=== PATIENT | male | born 1935 | race Caucasian/White ===

== ENCOUNTER 2016-02-19 14:20 | Observation (INO) | payer MEDICARE ==
[2016-02-19] MEDS ORDERED: Sodium Chloride 0.9% 500 ML 500 ML IV SCH (15:45)
--- NOTE | 2016-02-19 18:51 | PCM.HP ---
History of Present Illness - Chief Complaint Chief Complaint: anemia Date: 02/19/16 History of Present Illness: is a 81 year old male. with myelodysplastic syndrome who has anemia followed by Dr. Smith. He had scheduled recheck next week but was feeling very weak and short of breath so had his home nurse draw early and the hgb was 6.1. He was symptomatic with weakness and shortness of breath. He was too weak to wait for infusion center tomorrow and was thus admitted for observation and transfusion of 2 Units tonight. He has no other new complaints. - Review of Systems Constitutional: Fatigue, Weakness, No Fever, No Chills Eyes: No Symptoms Ears, Nose, & Throat: No Symptoms Respiratory: Short Of Breath, No Cough Cardiac: Chest Pain (chronic old incisional pain), No Edema, No Syncope Abdominal/Gastrointestinal: No Abdominal Pain, No Nausea, No Vomiting, No Diarrhea Genitourinary Symptoms: No Dysuria Musculoskeletal: No Back Pain, No Neck Pain Skin: No Rash Neurological: Dizziness, Lethargy, No Focal Weakness, No Sensory Changes Psychological: No Symptoms Endocrine: No Symptoms Hematologic/Lymphatic: No Symptoms Immunological/Allergic: No Symptoms Medications & Allergies Home Medications: Home Medication List Albuterol/Ipratropium 3ml Neb* [DUONEB 0.5-3 MG/3 ml Neb] 1 dose IH QID [History Confirmed 02/19/16] Ferrous Sulfate [Iron] 325 mg PO TID 02/19/16 [History Confirmed 02/19/16] Fluticasone Propionate [Flonase Nasal] 1 spray IN BID 02/19/16 [History Confirmed 02/19/16] Folic Acid 1 mg PO DAILY 02/19/16 [History Confirmed 02/19/16] Ipratropium/Albuterol Sulfate [Combivent Respimat Common Canister] 1 puff IH QID 02/19/16 [History Confirmed 02/19/16] Levothyroxine Sodium 25 Mcg [Synthroid 25 Mcg] 25 mcg PO DAILY 02/19/16 [ History Confirmed 02/19/16] Metoprolol Succinate 25 mg PO BID 02/19/16 [History Confirmed 02/19/16] Omeprazole 20 MG [Prilosec 20 mg] 1 tab PO DAILY 02/19/16 [History Confirmed ] Potassium Chloride 20 Meq [Klor-Con 20 MEQ] 2 tab PO DAILY 02/19/16 [History Confirmed 02/19/16] Spironolactone 25 mg [Aldactone 25 MG] 25 mg PO DAILY 02/19/16 [History Confirmed 02/19/16] Allergies/Adverse Reactions: Allergies Allergy/AdvReac Type Severity Reaction Status Date / Time No Known Drug Allergies Allergy Unverified 01/22/16 10:29 - Past Medical History Past Medical History: Yes Neurological History: No Pertinent History ENT History: Cataracts Cardiac History: Congestive Heart Failure, Coronary Artery Disease, High Cholesterol, Hypertension, Myocardial Infarction ([place]) Respiratory History: COPD, Pneumonia Endocrine Medical History: No Pertinent History Musculoskelatal History: No Pertinent History GI Medical History: No Pertinent History History: No Pertinent History Pyscho-Social History: No Pertinent History Male Reproductive Disorders: No Pertinent History Comment: NERVE PAIN IN RIGHT HAND, GETS STERIODS INJECTED - Past Surgical History Past Surgical History: Yes Neuro Surgical History: No Pertinent History Cardiac History: No Pertinent History Respiratory Surgery: No Pertinent History GI Surgical History: No Pertinent History Genitourinary Surgical Hx: No Pertinent History Musculskeletal Surgical Hx: No Pertinent History Male Surgical History: No Pertinent History Other Surgical History: pt unsure may not have appendix - Social History Smoking Status: Former smoker How long have you smoked: 37 years Exposure to second hand smoke: No Alcohol: None Drug Use: none - Physical Exam Vital Signs: Vital Signs - 24 hr Temp Pulse Resp BP BP Pulse Ox 02/19/16 14:37 97.6 F 87 20 128/62 100 02/19/16 14:36 97.6 F 87 20 128/62 100 General Appearance: no apparent distress, alert Neurologic Exam: alert, oriented x 3, cooperative, normal mood/affect, nml cerebellar function, nml station & gait, sensation nml, No motor deficits Eye Exam: PERRL/EOMI, eyes nml inspection, pale conjunctivae Ears, Nose, Throat Exam: pharynx normal, moist mucous membranes Neck Exam: normal inspection, non-tender, supple, full range of motion Respiratory Exam: normal breath sounds, lungs clear, No respiratory distress Cardiovascular Exam: regular rate/rhythm, normal heart sounds, normal peripheral pulses, murmur Gastrointestinal/Abdomen Exam: soft, normal bowel sounds, No tenderness, No mass Back Exam: normal inspection, normal range of motion, No CVA tenderness, No vertebral tenderness Extremity Exam: normal inspection, normal range of motion, pelvis stable Skin Exam: normal color, warm, dry, No rash Lymphatic Exam: No adenopathy Results - Labs Lab/Micro Results: Lab Results-Last 24 Hours 02/19/16 02/19/16 02/19/16 Range/Units 14:35 14:35 14:55 ABO Group O Rh Factor POSITIVE Antibody Screen NEGATIVE (NEGATIVE) Crossmatch COMPATIBLE COMPATIBLE (COMPATIBLE) Assessment/Plan (1) Symptomatic anemia Current Visit: Yes Status: Acute Assessment & Plan: transfuse 2 units repeat hgb/hct 2 hours post transfusion Code(s): D64.9 - ANEMIA, UNSPECIFIED (2) Shortness of breath Current Visit: Yes Status: Acute Code(s): R06.02 - SHORTNESS OF BREATH (3) Myelodysplastic syndrome Current Visit: Yes Status: Chronic Code(s): D46.9 - MYELODYSPLASTIC SYNDROME , UNSPECIFIED (4) History of COPD Current Visit: Yes Status: Chronic Code(s): Z87.09 - PERSONAL HISTORY OF OTHER DISEASES OF THE RESPIRATORY SYSTEM (5) History of chronic CHF Current Visit: Yes Status: Chronic Code(s): Z86.79 - PERSONAL HISTORY OF OTHER DISEASES OF THE CIRCULATORY SYSTEM (6) History of chronic kidney disease Current Visit: Yes Status: Chronic Code(s): Z87.448 - PERSONAL HISTORY OF OTHER DISEASES OF URINARY SYSTEM
[2016-02-20] MEDS ORDERED: DUONEB 0.5-3 MG/3 ml Neb IH SCH ×2 (08:00→19:00)
[2016-02-20] MEDS: FEOSOL 325 MG PO SCH ×2 (09:33→14:41)
[2016-02-20] MEDS ORDERED: DUONEB 0.5-3 MG/3 ml Neb IH PRN (09:50)
[2016-02-20] MEDS ORDERED: SYNTHROID 25 MCG PO SCH (10:00)
[2016-02-20] MEDS ORDERED: Aldactone 25 MG PO SCH (10:00)
[2016-02-20] MEDS ORDERED: Flonase NASAL NS SCH (10:00)
[2016-02-20] MEDS ORDERED: FOLATE 1 MG PO SCH (10:00)
[2016-02-20] MEDS ORDERED: POTASSIUM CHLORIDE 20 MEQ PO SCH (10:00)
[2016-02-20] MEDS ORDERED: Toprol-Xl 25MG Tablets PO SCH (10:00)
[2016-02-20] MEDS ORDERED: Protonix 40MG Tablet PO SCH (10:00)
[2016-02-20] MEDS ORDERED: Klor Con 10 MEQ PO SCH (10:00)
[2016-02-20] MEDS ORDERED: FLUTICASONE PROPIONATE IN SCH (10:00)
[2016-02-20] MEDS ORDERED: NON-FORMULARY ITEM (Omeprazole 20 Mg [Prilosec 20 Mg] 1 TAB) PO SCH (10:00)
[2016-02-20 12:17] VITALS: O2SAT 100
[2016-02-20 15:21] VITALS: BP 119/56; PULSE 63
--- NOTE | 2016-02-20 21:36 | PCM.DS ---
Discharge Summary Date of Admission: 02/19/16 14:25 Date of Discharge: 02/20/2016 Admitting Physician: GENO GAUTHIER Primary Care Provider: GENO GAUTHIER Allergies Allergies No Known Drug Allergies Allergy (Unverified 01/22/16 10:29) Hospital Summary - Hospital Course Hospital Course: Mr. Navarrete suffers from severe myelodysplastic syndrome and chronic kidney disease which he has required transfusions for his severe anemia for in the past and is on epo injection with Dr. Smith. He was scheduled for one next week but was more short of breath and fatigued. His home nurse came out and checked a cbc and found hgb of 6.1. He was too weak and short of breath to wait for a transfusion to be set up at infusion center. He was thus placed in observation overnight to get 2 units. His 2 hour post transfusion hgb only improved to 7.1 and he was still feeling short of breath and thus 2 additional units were given with improvement in symptoms. He will have a repeat cbc drawn by home health monday and return with any new symptoms. - Vitals & Intake/Output Vital Signs: Vital Signs Temperature 98.1 F 02/20/16 15:20 Pulse Rate 63 02/20/16 15:20 Respiratory Rate 18 02/20/16 16:00 Blood Pressure 119/56 02/20/16 15:20 O2 Sat by Pulse Oximetry 100 02/20/16 15:20 Intake & Output: Intake & Output 02/18/16 02/19/16 02/20/16 02/21/16 11:59 11:59 11:59 11:59 Intake Total 1977 1160 Output Total 200 Balance 1777 1160 Weight 78.744 kg - Lab Result Diagrams: 02/20/16 00:43 Lab Results-Last 24 Hrs: Lab Results-Last 24 Hours 02/20/16 02/20/16 02/20/16 Range/Units 00:43 08:54 08:54 Hgb 7.2 L (12.5-18.0) gm/dl Hct 22.1 L (42-50) % Crossmatch COMPATIBLE COMPATIBLE (COMPATIBLE) - Procedures and Test Procedures and Tests throughout Hospitalization: Therapy Orders & Screens 02/20/16 09:51 Oxygen NASAL CANNULA 2 lpm Comment: Diagnosis: anemia 02/20/16 09:52 Respiratory Nebulizer BID Comment: Diagnosis: anemia Discharge Exam General Appearance: no apparent distress Neurologic Exam: alert, oriented x 3, cooperative Skin Exam: warm, dry Neck Exam: normal inspection, non-tender, supple Respiratory Exam: normal breath sounds, lungs clear Cardiovascular Exam: regular rate/rhythm, murmur Gastrointestinal/Abdomen Exam: soft, normal bowel sounds, No tenderness Extremity Exam: normal inspection, No calf tenderness, No pedal edema, No swelling Final Diagnosis/Problem List - Final Discharge Diagnosis/Problem (1) Symptomatic anemia Status: Acute (2) Shortness of breath Status: Acute (3) Myelodysplastic syndrome Status: Chronic (4) History of COPD Status: Chronic (5) History of chronic CHF Status: Chronic (6) History of chronic kidney disease Status: Chronic - Discharge Discharge Date: 02/20/16 Disposition: Home Health @ [facility] Condition: Good Medications: Home Medications Albuterol/Ipratropium 3ml Neb* [DUONEB 0.5-3 MG/3 ml Neb] 1 dose IH QID [Confirmed 02/19/16] Ferrous Sulfate [Iron] 325 mg PO TID 02/19/16 [Confirmed 02/19/16] Fluticasone Propionate [Flonase Nasal] 1 spray IN BID 02/19/16 [Confirmed ] Folic Acid 1 mg PO DAILY 02/19/16 [Confirmed 02/19/16] Ipratropium/Albuterol Sulfate [Combivent Respimat Common Canister] 1 puff IH QID 02/19/16 [Confirmed 02/19/16] Levothyroxine Sodium 25 Mcg [Synthroid 25 Mcg] 25 mcg PO DAILY 02/19/16 [ Confirmed 02/19/16] Metoprolol Succinate 25 mg PO BID 02/19/16 [Confirmed 02/19/16] Omeprazole 20 MG [Prilosec 20 mg] 1 tab PO DAILY 02/19/16 [Confirmed 02/19/16] Potassium Chloride 20 Meq [Klor-Con 20 MEQ] 2 tab PO DAILY 02/19/16 [Confirmed 02/19/16] Spironolactone 25 mg [Aldactone 25 MG] 25 mg PO DAILY 02/19/16 [Confirmed 02/19/16] Instructions: Iron Deficiency Anemia Follow up with: GENO GAUTHIER [Primary Care Provider] - 02/26/16 11:15 am Forms: Discharge Instructions, Patient Portal Information
== END 2016-02-20 17:20 | disposition home health service (06) ==
LOC: MED SURG 14:25
PROVIDERS: ADMIT Family Medicine; ATTEND Family Medicine
DX: D64.9 Anemia, unspecified (principal); D46.9 Myelodysplastic syndrome, unspecified; I50.32 Chronic diastolic (congestive) heart failure; I25.10 Atherosclerotic heart disease of native coronary artery without angina pectoris; E78.00 Pure hypercholesterolemia, unspecified; J44.9 Chronic obstructive pulmonary disease, unspecified; I12.9 Hypertensive chronic kidney disease with stage 1 through stage 4 chronic kidney disease, or unspecified chronic kidney disease; N18.9 Chronic kidney disease, unspecified; I25.2 Old myocardial infarction; Z79.899 Other long term (current) drug therapy
CPT/HCPCS: 85014; 85018; 36415 ×2; 85027; 80076; 86850; 86900; 86901; 86922 ×2; 94640; 94760; P9016 ×2; 36430; G0378

== ENCOUNTER 2016-03-17 23:30 | Observation (INO) | payer MEDICARE ==
[2016-03-18] MEDS ORDERED: Sodium Chloride 0.9% 1000 ML 1,000 ML ONE (00:08)
--- NOTE | 2016-03-18 00:08 | ERPHSYRPT ---
- History of Present Illness Time Seen by Provider: 03/17/16 23:58 Source: patient Exam Limitations: no limitations Patient Subjective Stated Complaint: Pt sts feeling weak for last few weeks at home. Sts had a blood transfusion recently. Sts stomach discomfort. Pt sts no vomiting today. Denies diarrhea. Sts constipation - last BM today. Denies blood in stool. Sts stool is dark - takes iron. Triage Nursing Assessment: Pt alert, oriented, answers all questions appropriately. Skin pale, warm, dry. Resps non-labored. Pt speaking in full sentences without difficulty. Oral mucosa and conjunctivae pale, moist. Lung sounds CTA bilat non-labored. Physician History: This is an 81-year-old white male with history of myelodysplastic syndrome chronic renal failure, COPD, pneumonia, CHF, coronary artery disease, hyperlipidemia, atherosclerotic coronary artery disease. He arrives with complaint of feeling weak for the past couple weeks he states that he has been chronically short of breath he states that he has been having pain in the epigastric region which has been going on for 3-4 days he denies any vomiting he states he has chronically dark stools which are dark secondary to taking iron. Patient does receive injections boost his hemoglobin. Past medical history includes COPD, pneumonia, congestive heart failure, coronary artery disease, hyperlipidemia, high blood pressure, myocardial infarction, nerve pain in his right hand. Past surgical history patient is not sure whether he has had his appendix removed or not Timing/Duration: other (feeling weak for several weeks pain in the epigastric region for 3- days) Associated Symptoms: abdominal pain (Epigastric pain), shortness of breath ( chronic shortness of breath), weakness, No nausea, No vomiting, No heartburn, No diaphoresis, No cough, No chills, No chest pain, No fever, No headaches, No loss of appetite, No malaise, No rash, No syncope, No seizure Allergies/Adverse Reactions: No Known Drug Allergies Allergy (Verified 03/17/16 23:31) Home Medications: Albuterol/Ipratropium 3ml Neb* [DUONEB 0.5-3 MG/3 ml Neb] 1 dose IH QID [History] Ferrous Sulfate [Iron] 325 mg PO TID 02/19/16 [History] Fluticasone Propionate [Flonase Nasal] 1 spray IN BID 02/19/16 [History] Folic Acid 1 mg PO DAILY 02/19/16 [History] Ipratropium/Albuterol Sulfate [Combivent Respimat Common Canister] 1 puff IH QID 02/19/16 [History] Levothyroxine Sodium 25 Mcg [Synthroid 25 Mcg] 25 mcg PO DAILY 02/19/16 [ History] Metoprolol Succinate 25 mg PO BID 02/19/16 [History] Omeprazole 20 MG [Prilosec 20 mg] 1 tab PO DAILY 02/19/16 [History] Potassium Chloride 20 Meq [Klor-Con 20 MEQ] 2 tab PO DAILY 02/19/16 [History] Spironolactone 25 mg [Aldactone 25 MG] 25 mg PO DAILY 02/19/16 [History] Hx Tetanus, Diphtheria Vaccination/Date Given: No Hx Influenza Vaccination/Date Given: Yes Hx Pneumococcal Vaccination/Date Given: Yes - Review of Systems Constitutional: Fatigue, Weakness, No Fever, No Chills, No Lethargy, No Malaise , No Night Sweats Eyes: No Symptoms, No Discharge, No Eye Pain, No Eye Redness, No Itchy, No Photophobia, No Tearing, No Vision Changes, No Double Vision, No Foreign Body Sensation Ears, Nose, & Throat: No Symptoms, No Ear Pain, No Ear Discharge, No Hearing Changes, No Tinnitus, No Nose Pain, No Nose Congestion, No Nose Discharge, No Sinus Drainage, No Epistaxis, No Mouth Pain, No Mouth Swelling, No Loose Teeth, No Throat Pain, No Throat Swelling, No Hoarse, No Painful Swallowing, No Snoring , No Stridor Respiratory: Dyspnea (chronic shortness of breath), No Cough, No Cyanosis, No Dyspnea on Exertion ([place]IL[place]), No Stridor, No Wheezing Cardiac: No Chest Pain, No Edema, No Palpitations, No Syncope, No Orthopnea, No PND Abdominal/Gastrointestinal: Abdominal Pain (epigastric pain), Other (chronic dark stools secondary to iron), No Nausea, No Vomiting, No Diarrhea, No Constipation, No Hematemesis, No Hematochezia, No Melena, No Dysphagia, No Appetite Changes Genitourinary Symptoms: No Dysuria Musculoskeletal: No Back Pain, No Neck Pain Skin: No Rash Neurological: No Dizziness, No Focal Weakness, No Sensory Changes Psychological: No Symptoms Endocrine: No Symptoms All Other Systems: Reviewed and Negative - Past Medical History Pertinent Past Medical History: Yes Neurological History: No Pertinent History ENT History: Cataracts Cardiac History: Congestive Heart Failure, Coronary Artery Disease, High Cholesterol, Hypertension, Myocardial Infarction ([place]) Respiratory History: COPD, Pneumonia Endocrine Medical History: No Pertinent History Musculoskeletal History: No Pertinent History GI Medical History: No Pertinent History History: No Pertinent History Psycho-Social History: No Pertinent History Male Reproductive Disorders: No Pertinent History Other Medical History: NERVE PAIN IN RIGHT HAND, GETS STERIODS INJECTED - Past Surgical History Past Surgical History: Yes Neuro Surgical History: No Pertinent History Cardiac: No Pertinent History Respiratory: No Pertinent History Gastrointestinal: No Pertinent History Genitourinary: No Pertinent History Musculoskeletal: No Pertinent History Male Surgical History: No Pertinent History Other Surgical History: pt unsure may not have appendix - Social History Smoking Status: Former smoker How long have you smoked: 37 years Exposure to second hand smoke: No Drug Use: none Patient Lives Alone: No - Nursing Vital Signs Nursing Vital Signs: Initial Vital Signs Temperature 97.6 F Temperature Source Oral Pulse Rate 98 Respiratory Rate 16 Blood Pressure [] 114/59 Pain Intensity 5 - Physical Exam General Appearance: no apparent distress, alert Eye Exam: PERRL/EOMI, eyes nml inspection Ears, Nose, Throat Exam: normal ENT inspection, TMs normal, pharynx normal, moist mucous membranes Neck Exam: normal inspection, non-tender, supple, full range of motion Respiratory Exam: normal breath sounds, lungs clear, No respiratory distress Cardiovascular Exam: regular rate/rhythm, normal heart sounds, normal peripheral pulses Gastrointestinal/Abdomen Exam: soft, normal bowel sounds, tenderness (mild tenderness epigastric region), No distention, No mass, No guarding, No ecchymosis, No pulsatile mass, No rebound, No hernia, No hepatomegaly, No organomegaly, No splenomegaly Back Exam: normal inspection, normal range of motion, No CVA tenderness, No vertebral tenderness Extremity Exam: normal inspection, normal range of motion, pelvis stable Neurologic Exam: alert, oriented x 3, cooperative, normal mood/affect, nml cerebellar function, nml station & gait, sensation nml, No motor deficits Skin Exam: normal color, warm, dry, No rash SpO2 Interpretation: normal (100%) SpO2: 100 Oxygen Delivery: Room Air - Course Nursing assessment & vital signs reviewed: Yes EKG Interpreted by Me: RATE (67 bpm), Sinus Rhythm, NORMAL AXIS, Other (EKG, normal sinus rhythm, 67 bpm, normal axis, no acute ST or T wave changes noted) - Radiology Exams Chest X-ray Interpretation: Interpreted by me, Other (no acute disease process) Ordered Tests: Active Orders 24 hr Category Date Time Status EKG-ER Only STAT Care 03/18/16 00:02 Active IV Insertion STAT Care 03/18/16 00:02 Active CHEST 1 VIEW (PORTABLE) Stat Exams 03/18/16 00:03 Taken AMYLASE Stat Lab 03/18/16 00:10 Completed CBC W DIFF Stat Lab 03/18/16 00:10 Completed CMP Stat Lab 03/18/16 00:10 Completed LIPASE Stat Lab 03/18/16 00:10 Completed Manual Differential NC Stat Lab 03/18/16 00:10 Completed TROPONIN Stat Lab 03/18/16 00:10 Completed UA W/ MICROSCOPIC Stat Lab 03/18/16 00:30 Completed Medication Summary Generic Name Dose Route Start Last Admin Trade Name Freq PRN Reason Stop Dose Admin Sodium Chloride 1,000 mls @ 50 mls/hr 03/18/16 00:15 03/18/16 00:21 Sodium Chloride 0.9% 1000 Ml IV 04/17/16 00:14 50 mls/hr .Q20H BRAD Administration Discontinued Medications Generic Name Dose Route Start Last Admin Trade Name Freq PRN Reason Stop Dose Admin Sodium Chloride Confirm 03/18/16 00:08 Sodium Chloride 0.9% 1000 Ml Administered 03/18/16 00:09 Dose 1,000 mls @ ud .ROUTE .STK-MED ONE Lab/Rad Data: Laboratory Result Diagrams 03/18/16 00:10 03/18/16 00:10 Laboratory Results 03/18/16 03/18/16 03/18/16 Range/Units 00:30 00:10 00:10 WBC 11.8 H (4.0-10.5) K/mm3 RBC 2.12 L (4.1-5.6) M/mm3 Hgb 6.2 L* (12.5-18.0) gm/dl Hct 19.4 L (42-50) % MCV 91.5 (78-100) fl MCH 29.2 (26-32) pg MCHC 32.0 (32-36) g/dl RDW 15.8 H (11.5-14.0) % Plt Count 28 L* (150-450) K/mm3 MPV 10.0 H (6-9.5) fl Sodium 136 (136-145) mEq/L Potassium 4.4 (3.5-5.1) mEq/L Chloride 103 (98-107) mEq/L Carbon Dioxide 21.3 (21-32) mEq/L Anion Gap 16.4 H (5-15) MEQ/L BUN 24 H (9-20) mg/dL Creatinine 1.85 H (0.55-1.30) mg/dl Estimated GFR 37 ML/MIN Glucose 113 H (70-110) MG/DL Calcium 8.6 (8.5-10.1) mg/dL Total Bilirubin 0.4 (0.2-1.0) mg/dL AST 10 L (15-37) U/L ALT 7 L (12-78) U/L Alkaline Phosphatase 86 (46-116) U/L Troponin I < 0.017 (0.000-0.056) ng/ml Serum Total Protein 7.9 (6.4-8.2) gm/dL Albumin 2.9 L (3.4-5.0) g/dL Amylase 62 (25-115) U/L Lipase 89 (73-393) U/L Ur Collection Type CLEAN CATCH Urine Color YELLOW (YELLOW) Urine Appearance CLEAR (CLEAR) Urine pH 5.5 (5-6) Ur Specific [place] 1.020 (1.005-1.025) Urine Protein 30 (Negative) Urine Glucose (UA) NEGATIVE (NEGATIVE) mg/dL Urine Ketones NEGATIVE (NEGATIVE) Urine Nitrite NEGATIVE (NEGATIVE) Urine Bilirubin NEGATIVE (NEGATIVE) Urine Urobilinogen 1 (0-1) mg/dL Urine WBC (Auto) NEGATIVE (NEGATIVE) Urine RBC (Auto) NEGATIVE (0-5) Curtis/ul Ur Epithelial Cells FEW (FEW) /HPF Urine Mucus SLIGHT (NEGATIVE) /HPF Specimen Received 03/18/16:0030 - Progress Progress: improved Progress Note: 03/18/16 01:05 Patient has a hemoglobin of 6.2 hematocrit of 19.1 chemistry is essentially normal BUN is 24 creatinine 1.85 urine is unremarkable troponin is normal EKG is normal chest x-ray no acute changes Case is discussed with Dr. Ross, he recommends placing the patient on observation and transfusing 2 units packed red cells 03/18/16 01:07 Case is discussed with Dr. Kannan Lrree Will go ahead and place patient on observation telemetry transfuse 2 units packed red cells slowly - Departure Time of Disposition: 01:08 Departure Disposition: Observation Clinical Impression: Weakness, Myelodysplastic syndrome, Epigastric pain Anemia Qualifiers: Anemia type: unspecified type Qualified Code(s): D64.9 - Anemia, unspecified Condition: Fair Critical Care Time: No
[2016-03-18] MEDS ORDERED: Sodium Chloride 0.9% 1000 ML 1,000 ML IV SCH ×2 (00:15→01:57)
[2016-03-18 00:22] LABS: Mean Cell Volume 91.5 fl (78-100); Mean Corpuscular Hemoglobin 29.2 pg (26-32); Red Blood Count 2.12 M/mm3 (4.1-5.6); Red Cell Distribution Width 15.8 % (11.5-14.0); White Blood Count 11.8 K/mm3 (4.0-10.5)
[2016-03-18 00:46] LABS: ALBUMIN 2.9 g/dL (3.4-5.0); ALKALINE PHOSPHATASE 86 U/L (46-116); ANION GAP 16.4 MEQ/L (5-15); BILIRUBIN,TOTAL 0.4 mg/dL (0.2-1.0); BLOOD UREA NITROGEN 24 mg/dL (9-20); CHLORIDE 103 mEq/L (98-107); Carbon Dioxide 21.3 mEq/L (21-32); Glucose 113 MG/DL (70-110); LIPASE 89 U/L (73-393); Potassium 4.4 mEq/L (3.5-5.1); SGOT/AST 10 U/L (15-37); SGPT/ALT 7 U/L (12-78); SODIUM 136 mEq/L (136-145); TROPONIN < 0.017 ng/ml (0.000-0.056); Total Protein 7.9 gm/dL (6.4-8.2)
[2016-03-18 00:47] LABS: COMPLETE URINE MICROSCOPIC? YES; Collection Type CLEAN CATCH; Epithelial Cells FEW /HPF (FEW); Mucus SLIGHT /HPF (NEGATIVE); Ph 5.5 (5-6)
[2016-03-18 00:50] LABS: Platelet Count 28 K/mm3 (150-450)
[2016-03-18] MEDS ORDERED: MORPHINE SULFATE 4 MG INJ IV PRN (01:57)
[2016-03-18] MEDS ORDERED: Zofran 4 MG/2 ML VIAL IV PRN (01:57)
[2016-03-18 06:12] LABS: BAND 4 % (0.0-2.0); Metamyelocyte 3 %; Myelocyte 2 %; Nucleated Red Blood Cell 2 %; Promyelocyte 4 %; Total Cells Counted 100
[2016-03-18 06:15] LABS: ANISOCYTOSIS 1+; Poikilocytosis 1+
[2016-03-18 06:18] LABS: Platelet Estimate DECREASED (NORMAL)
[2016-03-18] MEDS: DUONEB 0.5-3 MG/3 ml Neb IH SCH ×2 (07:05)
[2016-03-18] MEDS ORDERED: PROVENTIL COMMON CANISTER IH PRN (07:30)
--- NOTE | 2016-03-18 08:40 | XRAY ---
Indication: Weakness and short of breath. Comparison: January 22, 2016 Portable chest again hyperinflated with scattered fibrosis/scarring, left costophrenic angle blunting, and calcified granulomas. No focal infiltrate, consolidation, or large effusion. Heart is not enlarged and again demonstrates previous CABG surgery. Bony thorax intact again with mild degenerative changes. Impression: Stable nonacute chest again with chronic features.
[2016-03-18 09:09] VITALS: BP 94/50; PULSE 68; O2SAT 97
[2016-03-18] MEDS ORDERED: Lopressor 25MG Tab PO SCH (10:00)
[2016-03-18] MEDS ORDERED: Protonix 40MG Tablet PO SCH (10:00)
[2016-03-18] MEDS ORDERED: FOLATE 1 MG PO SCH (10:00)
[2016-03-18] MEDS ORDERED: NON-FORMULARY ITEM (Omeprazole 20 Mg [Prilosec 20 Mg] 1 TAB) PO SCH (10:00)
[2016-03-18] MEDS ORDERED: ECOTRIN 81 MG PO SCH (10:00)
[2016-03-18] MEDS ORDERED: FEOSOL 325 MG PO SCH (10:00)
[2016-03-18] MEDS ORDERED: SYNTHROID 25 MCG PO SCH (10:00)
[2016-03-18] MEDS ORDERED: Aldactone 25 MG PO SCH (10:00)
[2016-03-18 12:46] LABS: Mean Cell Volume 89.9 fl (78-100); Mean Corpuscular Hemoglobin 29.1 pg (26-32); Mean Platelet Volume 9.1 fl (6-9.5); Red Blood Count 2.78 M/mm3 (4.1-5.6); Red Cell Distribution Width 15.1 % (11.5-14.0); White Blood Count 9.1 K/mm3 (4.0-10.5)
[2016-03-18 13:03] LABS: ALBUMIN 2.7 g/dL (3.4-5.0); ALKALINE PHOSPHATASE 75 U/L (46-116); ANION GAP 13.9 MEQ/L (5-15); BILIRUBIN,TOTAL 1.5 mg/dL (0.2-1.0); BLOOD UREA NITROGEN 20 mg/dL (9-20); CHLORIDE 106 mEq/L (98-107); Glucose 138 MG/DL (70-110); Platelet Count 20 K/mm3 (150-450); Potassium 4.2 mEq/L (3.5-5.1); SGOT/AST 10 U/L (15-37); SODIUM 138 mEq/L (136-145); Total Protein 7.2 gm/dL (6.4-8.2)
[2016-03-18 13:20] LABS: SGPT/ALT < 6 U/L (12-78)
--- NOTE | 2016-03-18 13:29 | PCM.DCORD ---
- Discharge Discharge Date: 03/18/16 Disposition: Home, Self-Care Condition: Fair Prescriptions: Continue Omeprazole 20 MG [Prilosec 20 mg] 1 tab PO DAILY Folic Acid 1 mg PO DAILY Levothyroxine Sodium 25 Mcg [Synthroid 25 Mcg] 25 mcg PO DAILY Ferrous Sulfate [Iron] 325 mg PO TID Metoprolol Tartrate 25 mg [Lopressor 25MG Tab] 25 mg PO BID Discontinued Spironolactone 25 mg [Aldactone 25 MG] 25 mg PO DAILY Aspirin [Aspirin EC] 81 mg PO DAILY Follow up with: GENO GAUTHIER [Primary Care Provider] -
[2016-03-18 13:48] LABS: BAND 13 % (0.0-2.0); Metamyelocyte 6 %; Promyelocyte 4 %; Total Cells Counted 100
[2016-03-18 13:50] LABS: ANISOCYTOSIS 1+; Platelet Estimate DECREASED (NORMAL); Poikilocytosis 1+
--- NOTE | 2016-03-18 17:58 | PCM.HP ---
History of Present Illness - Chief Complaint Chief Complaint: weakness, anemia Date: 03/18/16 History of Present Illness: is a 81 year old male. with ckd, chf and myelodpysplastic syndrome who is being followed by hematology for injections and has required multiple transfusions in the past for severe anemia with no blood loss found. He also has a relatively poor diet at home due to his poverty not being able to afford food at times. He became very weak and fatigued and had some epigastric discomfort last night came to ED and was found to be anemic. The ED physician consulted his bus mechanic who recommended observation for slow infusion of 2 Units PRBC which is being done now. He has no bleeding GI or otherwise and is otherwise very hungry this morning but otherwise feeling well. - Review of Systems Constitutional: Fatigue, Lethargy, No Fever, No Chills Eyes: No Symptoms Ears, Nose, & Throat: No Symptoms Respiratory: No Cough, No Short Of Breath Cardiac: No Chest Pain, No Edema, No Syncope Abdominal/Gastrointestinal: No Abdominal Pain, No Nausea, No Vomiting, No Diarrhea Genitourinary Symptoms: No Dysuria Musculoskeletal: No Back Pain, No Neck Pain Skin: No Rash Neurological: No Dizziness, No Focal Weakness, No Sensory Changes Psychological: No Symptoms Endocrine: No Symptoms Hematologic/Lymphatic: No Symptoms Immunological/Allergic: No Symptoms Medications & Allergies Home Medications: Home Medication List Ferrous Sulfate [Iron] 325 mg PO TID 02/19/16 [History Confirmed 03/18/16] Folic Acid 1 mg PO DAILY 02/19/16 [History Confirmed 03/18/16] Levothyroxine Sodium 25 Mcg [Synthroid 25 Mcg] 25 mcg PO DAILY 02/19/16 [ History Confirmed 03/18/16] Omeprazole 20 MG [Prilosec 20 mg] 1 tab PO DAILY 02/19/16 [History Confirmed 11/22] Metoprolol Tartrate 25 mg [Lopressor 25MG Tab] 25 mg PO BID 03/18/16 [ History Confirmed 03/18/16] Allergies/Adverse Reactions: Allergies Allergy/AdvReac Type Severity Reaction Status Date / Time No Known Drug Allergies Allergy Verified 03/17/16 23:31 - Past Medical History Past Medical History: Yes Neurological History: No Pertinent History ENT History: Cataracts Cardiac History: Congestive Heart Failure, Coronary Artery Disease, High Cholesterol, Hypertension, Myocardial Infarction ([place]) Respiratory History: COPD, Pneumonia Endocrine Medical History: No Pertinent History Musculoskelatal History: No Pertinent History GI Medical History: No Pertinent History History: No Pertinent History Pyscho-Social History: No Pertinent History Male Reproductive Disorders: No Pertinent History Comment: NERVE PAIN IN RIGHT HAND, GETS STERIODS INJECTED - Past Surgical History Past Surgical History: Yes Neuro Surgical History: No Pertinent History Cardiac History: CABG, Valve Replacement Respiratory Surgery: No Pertinent History GI Surgical History: No Pertinent History Genitourinary Surgical Hx: No Pertinent History Musculskeletal Surgical Hx: No Pertinent History Male Surgical History: No Pertinent History Other Surgical History: pt unsure may not have appendix - Social History Smoking Status: Former smoker How long have you smoked: 37 years Exposure to second hand smoke: No Alcohol: None Drug Use: none - Physical Exam Vital Signs: Vital Signs - 24 hr Temp Pulse Resp BP Pulse Ox 03/18/16 13:00 98.3 F 68 18 94/50 03/18/16 11:36 18 03/18/16 09:08 98.3 F 68 18 94/50 97 03/18/16 07:52 98.3 F 62 18 90/51 99 03/18/16 07:11 63 18 99 03/18/16 04:22 98 F 71 17 110/54 100 03/18/16 04:00 98.3 F 68 16 91/53 97 General Appearance: no apparent distress, alert Neurologic Exam: alert, oriented x 3, cooperative, normal mood/affect, nml cerebellar function, nml station & gait, sensation nml, No motor deficits Eye Exam: PERRL/EOMI, eyes nml inspection, pale conjunctivae Ears, Nose, Throat Exam: normal ENT inspection, TMs normal, pharynx normal, moist mucous membranes Neck Exam: normal inspection, non-tender, supple, full range of motion Respiratory Exam: normal breath sounds, lungs clear, No respiratory distress Cardiovascular Exam: regular rate/rhythm, normal heart sounds, normal peripheral pulses Gastrointestinal/Abdomen Exam: soft, normal bowel sounds, No tenderness, No mass Back Exam: normal inspection, normal range of motion, No CVA tenderness, No vertebral tenderness Extremity Exam: normal inspection, normal range of motion, pelvis stable Skin Exam: normal color, warm, dry, No rash Lymphatic Exam: No adenopathy Results - Labs Lab/Micro Results: Lab Results-Last 24 Hours 03/18/16 03/18/16 03/18/16 Range/Units 02:15 02:15 02:15 WBC (4.0-10.5) K/mm3 RBC (4.1-5.6) M/mm3 Hgb (12.5-18.0) gm/dl Hct (42-50) % MCV (78-100) fl MCH (26-32) pg MCHC (32-36) g/dl RDW (11.5-14.0) % Plt Count (150-450) K/mm3 MPV (6-9.5) fl Segmented Neutrophils (36.-66.) % Band Neutrophils (0.0-2.0) % Lymphocytes (Manual) (24-44) % Monocytes (Manual) (0.0-12.0) % Metamyelocytes % Promyelocytes % Platelet Estimate (NORMAL) Poikilocytosis Anisocytosis Rouleaux Sodium (136-145) mEq/L Potassium (3.5-5.1) mEq/L Chloride (98-107) mEq/L Carbon Dioxide (21-32) mEq/L Anion Gap (5-15) MEQ/L BUN (9-20) mg/dL Creatinine (0.55-1.30) mg/dl Estimated GFR ML/MIN Glucose (70-110) MG/DL Calcium (8.5-10.1) mg/dL Total Bilirubin (0.2-1.0) mg/dL AST (15-37) U/L ALT (12-78) U/L Alkaline Phosphatase (46-116) U/L Serum Total Protein (6.4-8.2) gm/dL Albumin (3.4-5.0) g/dL Amylase (25-115) U/L ABO Group O Rh Factor POSITIVE Antibody Screen NEGATIVE (NEGATIVE) Crossmatch COMPATIBLE COMPATIBLE (COMPATIBLE) 03/18/16 03/18/16 Range/Units 12:35 12:35 WBC 9.1 (4.0-10.5) K/mm3 RBC 2.78 L (4.1-5.6) M/mm3 Hgb 8.1 L (12.5-18.0) gm/dl Hct 25.0 L (42-50) % MCV 89.9 (78-100) fl MCH 29.1 (26-32) pg MCHC 32.4 (32-36) g/dl RDW 15.1 H (11.5-14.0) % Plt Count 20 L* (150-450) K/mm3 MPV 9.1 (6-9.5) fl Segmented Neutrophils 26 L (36.-66.) % Band Neutrophils 13 H (0.0-2.0) % Lymphocytes (Manual) 35 (24-44) % Monocytes (Manual) 16 H (0.0-12.0) % Metamyelocytes 6 % Promyelocytes 4 % Platelet Estimate DECREASED (NORMAL) Poikilocytosis 1+ Anisocytosis 1+ Rouleaux 1+ Sodium 138 (136-145) mEq/L Potassium 4.2 (3.5-5.1) mEq/L Chloride 106 (98-107) mEq/L Carbon Dioxide 22.0 (21-32) mEq/L Anion Gap 13.9 (5-15) MEQ/L BUN 20 (9-20) mg/dL Creatinine 1.47 H (0.55-1.30) mg/dl Estimated GFR 49 ML/MIN Glucose 138 H (70-110) MG/DL Calcium 7.8 L (8.5-10.1) mg/dL Total Bilirubin 1.5 H (0.2-1.0) mg/dL AST 10 L (15-37) U/L ALT < 6 L (12-78) U/L Alkaline Phosphatase 75 (46-116) U/L Serum Total Protein 7.2 (6.4-8.2) gm/dL Albumin 2.7 L (3.4-5.0) g/dL Amylase 55 (25-115) U/L ABO Group Rh Factor Antibody Screen (NEGATIVE) Crossmatch (COMPATIBLE) - Other Procedures and Tests Respiratory Therapy 03/18/16 02:13 Oxygen NASAL CANNULA 2 lpm 03/18/16 07:09 Respiratory MDI PRN Assessment/Plan (1) Anemia Status: Acute Qualifiers: Anemia type: unspecified type Qualified Code(s): D64.9 - Anemia, unspecified Assessment & Plan: transfusing 2 Units well recheck hgb after this discussed his severe thrombocytopenia as well he has no evidence of hemolysis and no bleeding now discussed present to ED again if new bleeding If Hgb improving and symptoms resolved will discharge to home to keep appointment next week with his bus mechanic. Code(s): D64.9 - ANEMIA, UNSPECIFIED (2) Myelodysplastic syndrome Status: Acute Code(s): D46.9 - MYELODYSPLASTIC SYNDROME, UNSPECIFIED (3) Thrombocytopenia Status: Acute (4) Weakness Status: Acute Code(s): R53.1 - WEAKNESS (5) History of COPD Status: Chronic Code(s): Z87.09 - PERSONAL HISTORY OF OTHER DISEASES OF THE RESPIRATORY SYSTEM (6) History of chronic CHF Status: Chronic Code(s): Z86.79 - PERSONAL HISTORY OF OTHER DISEASES OF THE CIRCULATORY SYSTEM (7) History of chronic kidney disease Status: Chronic Code(s): Z87.448 - PERSONAL HISTORY OF OTHER DISEASES OF URINARY SYSTEM
== END 2016-03-18 15:10 | disposition home or self-care (01) ==
LOC: ED 23:30 → MED SURG 03-18 01:38
PROVIDERS: ADMIT Family Medicine; ATTEND Family Medicine
DX: D64.9 Anemia, unspecified (principal); D46.9 Myelodysplastic syndrome, unspecified; D69.6 Thrombocytopenia, unspecified; R53.1 Weakness; J44.9 Chronic obstructive pulmonary disease, unspecified; I50.9 Heart failure, unspecified; I12.9 Hypertensive chronic kidney disease with stage 1 through stage 4 chronic kidney disease, or unspecified chronic kidney disease; N18.9 Chronic kidney disease, unspecified; I25.810 Atherosclerosis of coronary artery bypass graft(s) without angina pectoris; I25.2 Old myocardial infarction
CPT/HCPCS: 93268; 99285; 99282; 36000; 96360; 82150; 81000; 36415; 83690; 85025; 80053; 84484; 86850; 86900; 86901; 86922; 71010; 94760; P9016; 36430; G0378; J2270

== ENCOUNTER 2016-05-09 23:16 | Observation (INO) | payer MEDICARE ==
[2016-05-09] MEDS ORDERED: Sodium Chloride 0.9% 1000 ML 1,000 ML IV SCH (23:45)
--- NOTE | 2016-05-09 23:50 | ERPHSYRPT ---
- History of Present Illness Time Seen by Provider: 05/09/16 23:35 Source: patient Exam Limitations: clinical condition Patient Subjective Stated Complaint: REPORTS THAT HE RECEIVES BLOD TRANSFUSIONS WEEKLY HE DOES NOT MAKE BLOOD ANYMORE - HE BEGAN FEELING WEAKN YESTERDAY AND STATES THAT HE FEELS LIKE HE CAN NO LONGER WAIT Triage Nursing Assessment: AMBULATORY TO ER CART WITH ASSISTANCE - MOVES ALL EXTREMITIES WITH EQUAL STRENGTH. ALERT/ORIENTED - PLEASANT AFFECT. SKIN PALE/ HOT/DRY - NO RASH/INJURY. RESPS EASY - NON-LABORED Physician History: PATIENT WITH A HISTORY OF COPD, CHF, HYPERTENSION AND MYELODYSPASTIC SYNDROME COMPLAINS OF GENERALIZED WEAKNESS AND FATIQUE OVER 1 WEEK. HAS FREQUENT BLOOD TRANSFUSIONS FOR THIS DISORDER. DENIES COUGH , FEVER, CHILLS OR CHEST PAIN. Timing/Duration: week(s) Severity: moderate Modifying Factors: Improves With: movement Associated Symptoms: other (WEAKNESS, EXTERNAL DYSPNEA) Allergies/Adverse Reactions: No Known Drug Allergies Allergy (Verified 05/09/16 23:25) Home Medications: Ferrous Sulfate [Iron] 325 mg PO DAILY 02/19/16 [History] Folic Acid 1 mg PO DAILY 02/19/16 [History] Levothyroxine Sodium 25 Mcg [Synthroid 25 Mcg] 25 mcg PO DAILY 02/19/16 [ History] Omeprazole 20 MG [Prilosec 20 mg] 1 tab PO DAILY 02/19/16 [History] Aspirin 81 gm Chew [Baby Aspirin 81 mg Chew] 81 mg PO DAILY 04/13/16 [ History] Atorvastatin Calcium [Lipitor] 10 mg PO HS 04/13/16 [History] Bisacodyl 5 mg [Dulcolax 5 mg] 5 mg PO HS 04/13/16 [History] Docusate Sodium 100 mg [Colace 100 MG] 100 mg PO DAILY 04/13/16 [History] Fluticasone Propionate [Flovent Diskus] 2 puffs IH BID 04/13/16 [History] Furosemide 40 mg [Lasix 40 MG] 40 mg PO BID 04/13/16 [History] Lactulose [Lactulose 20 gm/30Ml Ud Cup] 10 gm PO DAILY 04/13/16 [History] Meclizine HCl 25 mg [Antivert 25 mg] 25 mg PO TID 04/13/16 [History] Hx Tetanus, Diphtheria Vaccination/Date Given: No Hx Influenza Vaccination/Date Given: No Hx Pneumococcal Vaccination/Date Given: No Immunizations Up to Date: Yes - Review of Systems Constitutional: Fatigue, Weakness, No Fever, No Chills Eyes: No Symptoms Ears, Nose, & Throat: No Symptoms Respiratory: Dyspnea on Exertion ([place]), No Cough, No Dyspnea Cardiac: No Symptoms, No Chest Pain, No Edema, No Syncope Abdominal/Gastrointestinal: No Symptoms, No Abdominal Pain, No Nausea, No Vomiting, No Diarrhea Genitourinary Symptoms: No Symptoms, No Dysuria Musculoskeletal: No Symptoms, No Back Pain, No Neck Pain Skin: No Symptoms, No Rash Neurological: No Dizziness, No Focal Weakness, No Sensory Changes Psychological: No Symptoms Endocrine: No Symptoms All Other Systems: Reviewed and Negative - Past Medical History Pertinent Past Medical History: Yes Neurological History: No Pertinent History ENT History: Cataracts Cardiac History: Congestive Heart Failure, Coronary Artery Disease, High Cholesterol, Hypertension, Myocardial Infarction ([place]) Respiratory History: COPD, Pneumonia Endocrine Medical History: No Pertinent History Musculoskeletal History: No Pertinent History GI Medical History: No Pertinent History History: No Pertinent History Psycho-Social History: No Pertinent History Male Reproductive Disorders: No Pertinent History Other Medical History: NERVE PAIN IN bilateral HAND, GETS STERIODS INJECTED. myelodysplastic syndrome. incisional pain chest - Past Surgical History Past Surgical History: Yes Neuro Surgical History: No Pertinent History Cardiac: CABG, Valve Replacement Respiratory: No Pertinent History Gastrointestinal: No Pertinent History Genitourinary: No Pertinent History Musculoskeletal: No Pertinent History Male Surgical History: No Pertinent History Other Surgical History: pt unsure may not have appendix - Social History Smoking Status: Former smoker How long have you smoked: 37 years Exposure to second hand smoke: No Drug Use: none Patient Lives Alone: No - Nursing Vital Signs Nursing Vital Signs: Initial Vital Signs Temperature 98.9 F Temperature Source Oral Pulse Rate 80 Respiratory Rate 16 Blood Pressure [Right Arm] 125/56 Pain Intensity 0 - Physical Exam General Appearance: no apparent distress, alert Eye Exam: PERRL/EOMI, eyes nml inspection Ears, Nose, Throat Exam: normal ENT inspection, TMs normal, pharynx normal, moist mucous membranes Neck Exam: normal inspection, non-tender, supple, full range of motion Respiratory Exam: normal breath sounds, lungs clear, No respiratory distress Cardiovascular Exam: regular rate/rhythm, normal heart sounds, normal peripheral pulses Gastrointestinal/Abdomen Exam: soft, normal bowel sounds, No tenderness, No mass Back Exam: normal inspection, normal range of motion, No CVA tenderness, No vertebral tenderness Extremity Exam: normal inspection, normal range of motion, pelvis stable Neurologic Exam: alert, oriented x 3, cooperative, normal mood/affect, nml cerebellar function, nml station & gait, sensation nml, No motor deficits Skin Exam: normal color, warm, dry, No rash Lymphatic Exam: No adenopathy SpO2 Interpretation: normal SpO2: 98 Oxygen Delivery: Room Air Ordered Tests: Active Orders 24 hr Category Date Time Status Up With Assistance ROUTINE Activity 05/10/16 00:59 Active Accucheck Q4H Care 05/10/16 00:59 Active Admission/Status Order ROUTINE Care 05/10/16 00:59 Active Call Admit Doctor for Orders ON ADMISSION Care 05/10/16 01:13 Active Code Status Order ROUTINE Care 05/10/16 00:59 Active IV Care Q6H Care 05/10/16 00:59 Active IV Insertion STAT Care 05/09/16 23:44 Active Oxygen-ED Only NASAL CANNULA 2 lpm Care 05/09/16 23:44 Active Vital Signs Q4H Care 05/10/16 00:59 Active Regular Diet Diet 05/10/16 Breakfast Active BMP Stat Lab 05/09/16 23:52 Received CBC W DIFF AM.LAB Lab 05/10/16 04:00 Ordered CBC W DIFF Stat Lab 05/09/16 23:52 Completed MAGNESIUM Stat Lab 05/09/16 23:52 Received Manual Differential NC Stat Lab 05/09/16 23:52 Completed PROTIME WITH INR Stat Lab 05/09/16 23:52 Completed Oxygen NASAL CANNULA 2 lpm RT 05/10/16 00:59 Active Transfer Order Routine Transfer 05/10/16 00:58 Ordered Medication Summary Generic Name Dose Route Start Last Admin Trade Name Freq PRN Reason Stop Dose Admin Acetaminophen 650 mg 05/10/16 00:59 Tylenol 325 Mg PO 06/09/16 00:58 Q4H PRN PRN PAIN AND/OR FEVER Albuterol/Ipratropium 3 ml 05/10/16 00:59 Duoneb 0.5-3 Mg/3 Ml Neb IH 06/09/16 00:58 Q4HPRN PRN SHORTNESS OF BREATH/WHEEZING Furosemide 40 mg 05/10/16 10:00 Lasix 40 Mg PO 06/09/16 09:59 BID DIURETIC BRAD Sodium Chloride 1,000 mls @ 50 mls/hr 05/09/16 23:45 05/10/16 00:05 Sodium Chloride 0.9% 1000 Ml IV 06/08/16 23:44 50 mls/hr .Q20H BRAD Administration Lactulose 10 g 05/10/16 10:00 Enulose 10 Gm/15 Ml PO 06/09/16 09:59 DAILY BRAD Levothyroxine Sodium 25 mcg 05/10/16 10:00 Synthroid 25 Mcg PO 06/09/16 09:59 QAM BRAD Ondansetron HCl 4 mg 05/10/16 00:59 Zofran 4 Mg/2 Ml Vial IV 06/09/16 00:58 Q6H PRN PRN NAUSEA/VOMITING Lab/Rad Data: Laboratory Result Diagrams 05/09/16 23:52 Laboratory Results 05/09/16 05/09/16 05/09/16 Range/Units 23:52 23:52 23:52 WBC 6.7 (4.0-10.5) K/mm3 RBC 1.75 L* (4.1-5.6) M/mm3 Hgb 5.1 L* (12.5-18.0) gm/dl Hct 15.8 L (42-50) % MCV 90.3 (78-100) fl MCH 29.1 (26-32) pg MCHC 32.3 (32-36) g/dl RDW 13.9 (11.5-14.0) % Plt Count 10 L* (150-450) K/mm3 MPV 10.1 H (6-9.5) fl INR 1.31 (0.8-3.0) Crossmatch COMPATIBLE (COMPATIBLE) - Progress Progress Note: 05/10/16 01:19 PATIENT TYPED AND CROSSED FOR 4 UNITS OF PRBC FOR TRANSFUSION Discussed with Dr.: Carter (DISCUSSED WITH DR CARTER AT 0045 FOR OBSERVATION) - Departure Time of Disposition: 01:20 Departure Disposition: Observation Clinical Impression: SYMPTOMATIC ANEMIA, MYELODYSPLASTIC SYNDROME Condition: Stable Critical Care Time: No Referrals: DEAN CARTER MD [Primary Care Provider] -
[2016-05-10 00:05] LABS: Mean Cell Volume 90.3 fl (78-100); Mean Corpuscular Hemoglobin 29.1 pg (26-32); Mean Platelet Volume 10.1 fl (6-9.5); Red Cell Distribution Width 13.9 % (11.5-14.0); White Blood Count 6.7 K/mm3 (4.0-10.5)
[2016-05-10 00:07] LABS: Red Blood Count 1.75 M/mm3 (4.1-5.6)
[2016-05-10 00:08] LABS: Platelet Count 10 K/mm3 (150-450)
[2016-05-10 00:26] LABS: INR 1.31 (0.8-3.0); PROTIME 14.6 SECONDS (8.83-12.87)
[2016-05-10] MEDS ORDERED: Zofran 4 MG/2 ML VIAL IV PRN (00:59)
[2016-05-10] MEDS ORDERED: TYLENOL 325 MG PO PRN (00:59)
[2016-05-10] MEDS ORDERED: DUONEB 0.5-3 MG/3 ml Neb IH PRN (00:59)
[2016-05-10] MEDS ORDERED: PROVENTIL COMMON CANISTER IH PRN (02:18)
[2016-05-10 03:26] LABS: Platelet Estimate DECREASED (NORMAL); Total Cells Counted 100
[2016-05-10] MEDS ORDERED: Flovent 110 Mcg COMMON CANISTER IH SCH (07:00)
[2016-05-10] MEDS: Lasix 40 MG PO SCH ×2 (08:04→16:10)
--- NOTE | 2016-05-10 08:44 | PCM.SSS ---
History of Present Illness - Chief Complaint Chief Complaint: SYMPTOMATIC ANEMIA History of Present Illness: is a 81 year old male pt of DR. Carter with myelodysplastic syndrome , on hospice with frequent transfusions, who was admitted through ER yesterday. He has been feeling weak for several days and was found to have a Hgb of 5.1. He is a somewhat difficult historian. Has had multiple transfusions. He received 2 units PRBC this morning and his H&H is pending. He is tolerating po well. - Review of Systems Cardiac: Chest Pain (substernal/L sided; pain along CABG scar) Abdominal/Gastrointestinal: No Hematochezia, No Melena Psychological: No Anxiety, No Depression, No Suicidal Ideations All Other Systems: Reviewed and Negative Medications & Allergies Home Medications: Home Medication List Ferrous Sulfate [Iron] 325 mg PO DAILY 02/19/16 [History Confirmed 05/09/16] Folic Acid 1 mg PO DAILY 02/19/16 [History Confirmed 05/09/16] Levothyroxine Sodium 25 Mcg [Synthroid 25 Mcg] 25 mcg PO DAILY 02/19/16 [ History Confirmed 05/09/16] Omeprazole 20 MG [Prilosec 20 mg] 1 tab PO DAILY 02/19/16 [History Confirmed 04/22] Aspirin 81 gm Chew [Baby Aspirin 81 mg Chew] 81 mg PO DAILY 04/13/16 [ History Confirmed 05/09/16] Atorvastatin Calcium [Lipitor] 10 mg PO HS 04/13/16 [History Confirmed 05/09/16] Bisacodyl 5 mg [Dulcolax 5 mg] 5 mg PO HS 04/13/16 [History Confirmed 04/22] Docusate Sodium 100 mg [Colace 100 MG] 100 mg PO DAILY 04/13/16 [History Confirmed 05/09/16] Fluticasone Propionate [Flovent Diskus] 2 puffs IH BID 04/13/16 [History Confirmed 05/09/16] Furosemide 40 mg [Lasix 40 MG] 40 mg PO BID 04/13/16 [History Confirmed ] Lactulose [Lactulose 20 gm/30Ml Ud Cup] 10 gm PO DAILY 04/13/16 [History Confirmed 05/09/16] Meclizine HCl 25 mg [Antivert 25 mg] 25 mg PO TID 04/13/16 [History Confirmed 05/09/16] Allergies/Adverse Reactions: Allergies Allergy/AdvReac Type Severity Reaction Status Date / Time No Known Drug Allergies Allergy Verified 05/09/16 23:25 - Past Medical History Past Medical History: Yes Neurological History: No Pertinent History ENT History: Cataracts Cardiac History: Congestive Heart Failure, Coronary Artery Disease, High Cholesterol, Hypertension, Myocardial Infarction ([place]) Respiratory History: COPD, Pneumonia Endocrine Medical History: No Pertinent History Musculoskelatal History: No Pertinent History GI Medical History: No Pertinent History History: No Pertinent History Pyscho-Social History: No Pertinent History Male Reproductive Disorders: No Pertinent History Comment: NERVE PAIN IN bilateral HAND, GETS STERIODS INJECTED. myelodysplastic syndrome. incisional pain chest - Past Surgical History Past Surgical History: Yes Neuro Surgical History: No Pertinent History Cardiac History: CABG, Valve Replacement Respiratory Surgery: No Pertinent History GI Surgical History: No Pertinent History Genitourinary Surgical Hx: No Pertinent History Musculskeletal Surgical Hx: No Pertinent History Male Surgical History: No Pertinent History Other Surgical History: pt unsure may not have appendix. info recalled from previous stay - Social History Smoking Status: Former smoker How long have you smoked: 37 years Exposure to second hand smoke: No Alcohol: None Drug Use: none - Physical Exam Vital Signs: Vital Signs - 24 hr Temp Pulse Resp BP Pulse Ox 05/10/16 08:00 20 05/10/16 07:40 69 20 96 05/10/16 07:28 97.8 F 74 17 114/59 95 05/10/16 04:00 97.9 F 74 19 123/58 99 05/10/16 02:06 97.9 F 74 19 123/58 99 05/10/16 02:00 72 18 97 05/10/16 01:20 98 05/10/16 00:38 80 16 125/56 99 05/09/16 23:20 98.9 F 88 16 131/60 98 Oxygen-Last 24 hours O2 Percentage 2 Liters = 28% General Appearance: no apparent distress Neurologic Exam: alert, oriented x 3, cooperative Eye Exam: eyes nml inspection Neck Exam: normal inspection Respiratory Exam: normal breath sounds, lungs clear, other (inferior midline chest scar ttp bilaterally; no crepitus or erythema), No crackles/rales, No rhonchi, No wheezing Cardiovascular Exam: regular rate/rhythm, normal heart sounds, No murmur Gastrointestinal/Abdomen Exam: soft, No tenderness, No distention Back Exam: normal inspection, No CVA tenderness Extremity Exam: normal inspection, No pedal edema, No swelling Skin Exam: normal color, warm, dry Results - Labs Lab/Micro Results: Accuchecks Date 05/10/16 Date 05/10/16 Time 07:30 Time 03:30 Accucheck Value: 115 Accuchecks Date 05/10/16 Date 05/10/16 Time 07:30 Time 03:30 Accucheck Value: 115 - Other Procedures and Tests Respiratory Therapy 05/10/16 00:59 Oxygen NASAL CANNULA 2 lpm 05/10/16 02:18 Respiratory MDI PRN 05/10/16 02:19 Respiratory Nebulizer PRN 05/10/16 07:00 Respiratory MDI BID Assessment/Plan (1) Anemia Current Visit: No Status: Acute Qualifiers: Anemia type: unspecified type Qualified Code(s): D64.9 - Anemia, unspecified Assessment & Plan: Usual Hgb appears to be 7.4-8.0. Await H&H after 2 units PRBC. Code(s): D64.9 - ANEMIA, UNSPECIFIED (2) Myelodysplastic syndrome Current Visit: No Status: Chronic Assessment & Plan: On hospice. Code(s): D46.9 - MYELODYSPLASTIC SYNDROME, UNSPECIFIED (3) Thrombocytopenia Current Visit: No Status: Acute Assessment & Plan: platelets 10 last night; recheck. (4) Chest pain Current Visit: Yes Status: Acute Qualifiers: Chest pain type: other chest pain Qualified Code(s): R07.89 - Other chest pain; R07.8 - Other chest pain Assessment & Plan: due to scar. will check one troponin. Code(s): R07.9 - CHEST PAIN, UNSPECIFIED Hospital Summary - Hospital Course Hospital Course: Admitted through ER with hgb 5.1, 2 units PRBC transfused. If feeling ok after transfusion will be discharged to home. - Vitals & Intake/Output Vital Signs: Vital Signs Temperature 97.8 F 05/10/16 07:28 Pulse Rate 69 05/10/16 07:40 Respiratory Rate 20 05/10/16 08:00 Blood Pressure 114/59 05/10/16 07:28 O2 Sat by Pulse Oximetry 96 05/10/16 07:40 Oxygen-Last Documented O2 Percentage 2 Liters = 28% Intake & Output: Intake & Output 05/07/16 05/08/16 05/09/16 05/10/16 11:59 11:59 11:59 11:59 Intake Total 322 Balance 322 Weight 81.465 kg - Lab Result Diagrams: 05/09/16 23:52 Lab Results-Last 24 Hrs: Accuchecks Date 05/10/16 Date 05/10/16 Time 07:30 Time 03:30 Accucheck Value: 115 Micro Results-Entire Visit: Accuchecks Date 05/10/16 Date 05/10/16 Time 07:30 Time 03:30 Accucheck Value: 115 - Procedures and Test Procedures and Tests throughout Hospitalization: Therapy Orders & Screens 05/10/16 00:59 Oxygen NASAL CANNULA 2 lpm Comment: 05/10/16 02:18 Respiratory MDI PRN Comment: ALBUTEROL 2 PUFFS Q4HPRN FOR SOB/WHEEZING Diagnosis: SYMPTOMATIC ANEMIA 05/10/16 02:19 Respiratory Nebulizer PRN Comment: DUONEB Q4PRN FOR SOB/WHEEZING Diagnosis: SYMPTOMATIC ANEMIA Respiratory Therapy Consult ROUTINE Comment: Reason For Exam: Diagnosis: SYMPTOMATIC ANEMIA 05/10/16 07:00 Respiratory MDI BID Comment: FLOVENT 2 PUFFS BID Diagnosis: SYMPTOMATIC ANEMIA - Discharge Disposition: Home, Self-Care Condition: Stable Prescriptions: No Action Omeprazole 20 MG [Prilosec 20 mg] 1 tab PO DAILY Folic Acid 1 mg PO DAILY Levothyroxine Sodium 25 Mcg [Synthroid 25 Mcg] 25 mcg PO DAILY Ferrous Sulfate [Iron] 325 mg PO DAILY Meclizine HCl 25 mg [Antivert 25 mg] 25 mg PO TID Furosemide 40 mg [Lasix 40 MG] 40 mg PO BID Fluticasone Propionate [Flovent Diskus] 2 puffs IH BID Lactulose [Lactulose 20 gm/30Ml Ud Cup] 10 gm PO DAILY Atorvastatin Calcium [Lipitor] 10 mg PO HS Docusate Sodium 100 mg [Colace 100 MG] 100 mg PO DAILY Bisacodyl 5 mg [Dulcolax 5 mg] 5 mg PO HS Aspirin 81 gm Chew [Baby Aspirin 81 mg Chew] 81 mg PO DAILY Instructions: Anemia of Chronic Disease Follow up with: DEAN CARTER MD [Primary Care Provider] -
[2016-05-10 09:47] LABS: Mean Cell Volume 87.6 fl (78-100); Mean Corpuscular Hemoglobin 28.8 pg (26-32); Red Cell Distribution Width 15.7 % (11.5-14.0); White Blood Count 6.6 K/mm3 (4.0-10.5)
[2016-05-10] MEDS ORDERED: LACTULOSE 20 GM/30ML UD CUP PO SCH (10:00)
[2016-05-10] MEDS ORDERED: Enulose 10 GM/15 ML PO SCH (10:00)
[2016-05-10] MEDS ORDERED: SYNTHROID 25 MCG PO SCH (10:00)
[2016-05-10 10:02] LABS: Platelet Count 8 K/mm3 (150-450)
[2016-05-10 10:17] LABS: BAND 2 % (0.0-2.0); Total Cells Counted 100
[2016-05-10 10:21] LABS: ANISOCYTOSIS 1+; Platelet Estimate DECREASED (NORMAL); Poikilocytosis 2+; Spherocyte 1+
[2016-05-10 16:30] VITALS: BP 107/53; PULSE 69; O2SAT 98
== END 2016-05-10 17:55 | disposition home health service (06) ==
LOC: ED 23:16 → MED SURG 05-10 01:33
PROVIDERS: ADMIT Family Medicine; ATTEND Family Medicine
DX: D64.9 Anemia, unspecified (principal); D46.9 Myelodysplastic syndrome, unspecified; D69.6 Thrombocytopenia, unspecified; R07.89 Other chest pain; I50.9 Heart failure, unspecified; I10 Essential (primary) hypertension; I25.810 Atherosclerosis of coronary artery bypass graft(s) without angina pectoris; Z79.899 Other long term (current) drug therapy; I25.2 Old myocardial infarction
CPT/HCPCS: 82962; 99285; 36000; 96360; 96361; 85610; 36415; 83036; 83735; 85025; 80048; 84484; 86850; 86900; 86901; 86922; 94640; 94760; P9034; P9016; 36430; G0378; A9270-GY

== ENCOUNTER 2016-05-13 07:04 | Day surgery (SDC) | payer MEDICARE ==
[2016-05-13] MEDS ORDERED: Sodium Chloride 0.9% 1000 ML 1,000 ML ONE (07:06)
[2016-05-13] MEDS ORDERED: Sodium Chloride 0.9% 1000 ML 1,000 ML IV SCH (07:15)
[2016-05-13] MEDS ORDERED: Lasix 20 MG/2 ML ONE ×2 (09:38→12:37)
[2016-05-13] MEDS: Lasix 20 MG/2 ML IV PRN ×2 (09:50→12:43)
[2016-05-13 16:31] VITALS: BP 105/64; PULSE 78; O2SAT 98
== END 2016-05-13 15:40 | disposition home or self-care (01) ==
LOC: SDC 07:04
PROVIDERS: ATTEND Family Medicine
DX: D64.9 Anemia, unspecified (principal)
CPT/HCPCS: 96374; 96365; 96366; 96376; 36415; 86850; 86900; 86901; 86922; P9016; 36430; J1940

== ENCOUNTER 2016-05-27 22:38 | Observation (INO) | payer MEDICARE ==
[2016-05-27] MEDS ORDERED: Sodium Chloride 0.9% 1000 ML 1,000 ML ONE (22:44)
[2016-05-27] MEDS ORDERED: Sodium Chloride 0.9% 1000 ML 1,000 ML IV SCH (22:45)
[2016-05-27 22:56] LABS: Mean Cell Volume 85.2 fl (78-100); Mean Corpuscular Hemoglobin 27.6 pg (26-32); Red Cell Distribution Width 15.9 % (11.5-14.0); White Blood Count 12.8 K/mm3 (4.0-10.5)
[2016-05-27 23:00] LABS: Platelet Count 11 K/mm3 (150-450)
[2016-05-27 23:22] LABS: ALBUMIN 3.2 g/dL (3.4-5.0); ALKALINE PHOSPHATASE 82 U/L (46-116); ANION GAP 16.7 MEQ/L (5-15); BILIRUBIN,TOTAL 0.5 mg/dL (0.2-1.0); BLOOD UREA NITROGEN 31 mg/dL (9-20); CHLORIDE 102 mEq/L (98-107); Carbon Dioxide 22.5 mEq/L (21-32); Glucose 125 MG/DL (70-110); Potassium 3.9 mEq/L (3.5-5.1); SGOT/AST 16 U/L (15-37); SGPT/ALT 13 U/L (12-78); SODIUM 137 mEq/L (136-145); TROPONIN < 0.017 ng/ml (0.000-0.056)
--- NOTE | 2016-05-27 23:25 | ERPHSYRPT ---
- History of Present Illness Time Seen by Provider: 05/27/16 23:22 Source: patient Exam Limitations: no limitations Patient Subjective Stated Complaint: pt states he has been feeling weak and short of breath approx 2-3 days. states when he has felt like this before he has needed a blood transfusion Triage Nursing Assessment: pt alert and oriented, asnwers questions approp. pt ambulated from ems stretcher to bed, steady gait noted. respirations nonlabored with sob noted with exertion. lungs cta. skin pink warm and dry. Physician History: pt states he has been feeling weak and short of breath approx 2-3 days. Patient has end stage myelodysplastic syndrome Severity: moderate Associated Symptoms: shortness of breath Allergies/Adverse Reactions: No Known Drug Allergies Allergy (Verified 05/27/16 23:00) Home Medications: Ferrous Sulfate [Iron] 325 mg PO DAILY 02/19/16 [History] Folic Acid 1 mg PO DAILY 02/19/16 [History] Levothyroxine Sodium 25 Mcg [Synthroid 25 Mcg] 25 mcg PO DAILY 02/19/16 [ History] Omeprazole 20 MG [Prilosec 20 mg] 1 tab PO DAILY 02/19/16 [History] Aspirin 81 gm Chew [Baby Aspirin 81 mg Chew] 81 mg PO DAILY 04/13/16 [ History] Atorvastatin Calcium [Lipitor] 10 mg PO HS 04/13/16 [History] Bisacodyl 5 mg [Dulcolax 5 mg] 5 mg PO HS 04/13/16 [History] Docusate Sodium 100 mg [Colace 100 MG] 100 mg PO DAILY 04/13/16 [History] Fluticasone Propionate [Flovent Diskus] 2 puffs IH BID 04/13/16 [History] Furosemide 40 mg [Lasix 40 MG] 40 mg PO BID 04/13/16 [History] Lactulose [Lactulose 20 gm/30Ml Ud Cup] 10 gm PO DAILY PRN 04/13/16 [ History] Meclizine HCl 25 mg [Antivert 25 mg] 25 mg PO TID 04/13/16 [History] Hx Tetanus, Diphtheria Vaccination/Date Given: No (unknown) Hx Influenza Vaccination/Date Given: Yes Hx Pneumococcal Vaccination/Date Given: Yes Immunizations Up to Date: No - Review of Systems Constitutional: Weakness, No Fever, No Chills Eyes: No Symptoms Ears, Nose, & Throat: No Symptoms Respiratory: Dyspnea on Exertion ([place]), No Cough, No Dyspnea Cardiac: No Chest Pain, No Edema, No Syncope Abdominal/Gastrointestinal: No Abdominal Pain, No Nausea, No Vomiting, No Diarrhea Genitourinary Symptoms: No Dysuria Musculoskeletal: No Back Pain, No Neck Pain Skin: No Rash Neurological: No Dizziness, No Focal Weakness, No Sensory Changes Psychological: No Symptoms Endocrine: No Symptoms All Other Systems: Reviewed and Negative - Past Medical History Pertinent Past Medical History: Yes Neurological History: No Pertinent History ENT History: Cataracts Cardiac History: Congestive Heart Failure, Coronary Artery Disease, High Cholesterol, Hypertension, Myocardial Infarction ([place]) Respiratory History: COPD, Pneumonia Endocrine Medical History: No Pertinent History Musculoskeletal History: No Pertinent History GI Medical History: No Pertinent History History: No Pertinent History Psycho-Social History: No Pertinent History Male Reproductive Disorders: No Pertinent History Other Medical History: NERVE PAIN IN bilateral HAND, GETS STERIODS INJECTED. myelodysplastic syndrome. incisional pain chest - Past Surgical History Past Surgical History: Yes Neuro Surgical History: No Pertinent History Cardiac: CABG, Valve Replacement Respiratory: No Pertinent History Gastrointestinal: No Pertinent History Genitourinary: No Pertinent History Musculoskeletal: No Pertinent History Male Surgical History: No Pertinent History Other Surgical History: pt unsure may not have appendix. info recalled from previous stay - Social History Smoking Status: Former smoker How long have you smoked: 37 years Exposure to second hand smoke: No Drug Use: none Patient Lives Alone: Yes - Nursing Vital Signs Nursing Vital Signs: Initial Vital Signs Temperature 97.5 F Temperature Source Oral Pulse Rate 87 Respiratory Rate 22 Blood Pressure [Right Arm] 123/92 - Physical Exam General Appearance: no apparent distress, alert Eye Exam: PERRL/EOMI, eyes nml inspection Ears, Nose, Throat Exam: normal ENT inspection, TMs normal, pharynx normal, moist mucous membranes Neck Exam: normal inspection, non-tender, supple, full range of motion Respiratory Exam: rhonchi, No respiratory distress Cardiovascular Exam: regular rate/rhythm, normal heart sounds, normal peripheral pulses Gastrointestinal/Abdomen Exam: soft, normal bowel sounds, No tenderness, No mass Back Exam: normal inspection, normal range of motion, No CVA tenderness, No vertebral tenderness Extremity Exam: normal inspection, normal range of motion, pelvis stable Neurologic Exam: alert, oriented x 3, cooperative, normal mood/affect, nml cerebellar function, nml station & gait, sensation nml, No motor deficits Skin Exam: normal color, warm, dry, No rash Lymphatic Exam: No adenopathy SpO2: 97 Oxygen Delivery: Room Air - Course Nursing assessment & vital signs reviewed: Yes Ordered Tests: Active Orders 24 hr Category Date Time Status EKG-ER Only STAT Care 05/27/16 22:40 Active Oxygen-ED Only NASAL CANNULA 2 lpm Care 05/27/16 22:40 Active CHEST 1 VIEW (PORTABLE) Stat Exams 05/27/16 22:41 Taken CBC W DIFF Stat Lab 05/27/16 22:43 Completed CMP Stat Lab 05/27/16 22:43 Received Lactic Acid Urgent Lab 05/27/16 22:40 Ordered Manual Differential NC Stat Lab 05/27/16 22:43 Completed NT PRO BNP Stat Lab 05/27/16 22:43 Received TROPONIN Stat Lab 05/27/16 22:43 Received UA Stat Lab 05/27/16 22:41 Ordered Medication Summary Generic Name Dose Route Start Last Admin Trade Name Freq PRN Reason Stop Dose Admin Sodium Chloride 1,000 mls @ 50 mls/hr 05/27/16 22:45 05/27/16 22:45 Sodium Chloride 0.9% 1000 Ml IV 06/26/16 22:44 50 mls/hr .Q20H BRAD Administration Lab/Rad Data: Laboratory Result Diagrams 05/27/16 22:43 Laboratory Results 05/27/16 Range/Units 22:43 WBC 12.8 H (4.0-10.5) K/mm3 RBC 2.50 L (4.1-5.6) M/mm3 Hgb 6.9 L* (12.5-18.0) gm/dl Hct 21.3 L (42-50) % MCV 85.2 (78-100) fl MCH 27.6 (26-32) pg MCHC 32.4 (32-36) g/dl RDW 15.9 H (11.5-14.0) % Plt Count 11 L* (150-450) K/mm3 MPV 10.0 H (6-9.5) fl - Progress Progress: unchanged Discussed with : Gato Carter Counseled pt/family regarding: lab results, diagnosis, need for follow-up - Departure Time of Disposition: 23:25 Departure Disposition: Observation Clinical Impression: Myelodysplastic syndrome Anemia Qualifiers: Anemia type: 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
[2016-05-28] MEDS ORDERED: PROVENTIL COMMON CANISTER IH PRN (00:09)
[2016-05-28 00:18] LABS: COMPLETE URINE MICROSCOPIC? YES; Collection Type CLEAN CATCH
[2016-05-28 00:19] LABS: Bacteria RARE /HPF (NEGATIVE)
[2016-05-28 00:19] LABS: ATYPICAL LYMPHS 1 %; BAND 22 % (0.0-2.0); Total Cells Counted 100
[2016-05-28 00:20] LABS: Platelet Estimate DECREASED (NORMAL)
--- NOTE | 2016-05-28 07:34 | XRAY ---
Indication: Short of breath. Comparison: March 18, 2016. Portable chest unchanged again hyperinflated with scattered fibrosis/scarring and a few calcified granulomas. No focal infiltrate, consolidation, or large effusion. Heart is not enlarged again demonstrating previous CABG surgery. Vascularity normal. Bony thorax intact again with mild degenerative changes. Impression: Stable nonacute chest again with chronic features.
[2016-05-28] MEDS ORDERED: Sodium Chloride 0.9% 500 ML 500 ML IV ONE ×2 (07:38→13:51)
[2016-05-28] MEDS ORDERED: ULTRAM 50 MG PO PRN (10:27)
[2016-05-28] MEDS ORDERED: TYLENOL 325 MG PO PRN (10:27)
[2016-05-28] MEDS ORDERED: Miralax Powder 17GM PACKET PO SCH (11:00)
[2016-05-28] MEDS ORDERED: LACTULOSE 20 GM/30ML UD CUP PO PRN (11:27)
[2016-05-28] MEDS ORDERED: FEOSOL 325 MG PO SCH (12:00)
[2016-05-28] MEDS ORDERED: FOLATE 1 MG PO SCH (12:00)
[2016-05-28] MEDS ORDERED: Colace 100 MG PO SCH (12:00)
[2016-05-28] MEDS ORDERED: Lasix 40 MG PO SCH (12:00)
[2016-05-28] MEDS ORDERED: Flovent 110 Mcg COMMON CANISTER IH SCH (12:00)
[2016-05-28] MEDS ORDERED: SYNTHROID 25 MCG PO SCH (12:00)
[2016-05-28] MEDS ORDERED: ECOTRIN 81 MG PO SCH (12:00)
[2016-05-28] MEDS ORDERED: Protonix 40MG Tablet PO SCH (12:00)
[2016-05-28] MEDS ORDERED: ANTIVERT 25 MG PO SCH (15:00)
[2016-05-28 15:59] VITALS: BP 109/57; PULSE 74; O2SAT 96
[2016-05-28] MEDS ORDERED: NON-FORMULARY ITEM (Atorvastatin Calcium 10 MG) PO SCH (22:00)
[2016-05-28] MEDS ORDERED: DULCOLAX 5 MG PO SCH (22:00)
[2016-05-28] MEDS ORDERED: Zocor 10MG PO SCH (22:00)
[2016-05-28] MEDS ORDERED: FLUTICASONE PROPIONATE IH SCH (22:00)
[2016-05-29] MEDS ORDERED: BABY ASPIRIN 81 MG CHEW PO SCH (10:00)
[2016-05-29] MEDS ORDERED: NON-FORMULARY ITEM (Omeprazole 20 Mg [Prilosec 20 Mg] 1 TAB) PO SCH (10:00)
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
== END 2016-05-28 18:14 | disposition home or self-care (01) ==
LOC: ED 22:38 → MED SURG 23:25 → INTOOBSV 23:25
PROVIDERS: ADMIT Internal Medicine; ATTEND Family Medicine
DX: D64.9 Anemia, unspecified (principal); D69.6 Thrombocytopenia, unspecified; I10 Essential (primary) hypertension; I12.9 Hypertensive chronic kidney disease with stage 1 through stage 4 chronic kidney disease, or unspecified chronic kidney disease; N18.3 Chronic kidney disease, stage 3 (moderate); E03.9 Hypothyroidism, unspecified; D46.9 Myelodysplastic syndrome, unspecified; E78.5 Hyperlipidemia, unspecified; K21.9 Gastro-esophageal reflux disease without esophagitis; Z79.899 Other long term (current) drug therapy
CPT/HCPCS: 99285; 96360; 81000; 84443; 85014; 85018; 36415 ×2; 83880; 85025; 80053; 84484; 86850; 86900; 86901; 86922 ×2; 71010; 94760; 83605; P9034; P9016 ×2; 36430; G0378; A9270-GY

== ENCOUNTER → 2016-06-10 | Day surgery (SDC) | payer MEDICARE ==
[~2016-06-10] MED LIST: Lasix 20 MG/2 ML ONE; Sodium Chloride 0.9% 1000 ML 1,000 ML IV SCH; Sodium Chloride 0.9% 1000 ML 1,000 ML ONE; TYLENOL 325 MG ONE; TYLENOL 325 MG PO ONE
[2016-06-10 10:51] VITALS: PULSE 88
[2016-06-10] MEDS: Lasix 20 MG/2 ML IV SCH ×2 (14:43→17:01)
== END ==
LOC: INFUSION 10:19
PROVIDERS: ATTEND Family Medicine
DX: D46.9 Myelodysplastic syndrome, unspecified (principal)
CPT/HCPCS: 96374; 96366; 96376; 96367; 36415; 86850; 86900; 86901; 86922; P9016; 36430; J1940; A9270-GY

== ENCOUNTER 2016-06-20 08:21 | Day surgery (SDC) | payer MEDICARE ==
[2016-06-20 08:45] LABS: Mean Cell Volume 87.7 fl (78-100); Mean Platelet Volume 10.7 fl (6-9.5); Red Blood Count 2.52 M/mm3 (4.1-5.6); Red Cell Distribution Width 15.4 % (11.5-14.0); White Blood Count 6.1 K/mm3 (4.0-10.5)
[2016-06-20 08:47] LABS: Mean Corpuscular Hemoglobin 28.5 pg (26-32)
[2016-06-20 08:50] LABS: Platelet Count 11 K/mm3 (150-450)
[2016-06-20] MEDS ORDERED: TYLENOL 325 MG PO ONE (09:25)
[2016-06-20] MEDS ORDERED: Lasix 20 MG/2 ML IV SCH (09:30)
[2016-06-20] MEDS ORDERED: Sodium Chloride 0.9% 1000 ML 1,000 ML IV SCH (09:30)
[2016-06-20] MEDS ORDERED: Sodium Chloride 0.9% 1000 ML 1,000 ML ONE (10:39)
[2016-06-20] MEDS ORDERED: Lasix 20 MG/2 ML ONE (10:40)
[2016-06-20] MEDS ORDERED: TYLENOL 325 MG ONE (10:40)
[2016-06-20 15:00] VITALS: O2SAT 98
[2016-06-20 15:35] VITALS: BP 102/46; PULSE 77
== END 2016-06-20 15:41 | disposition home or self-care (01) ==
LOC: INFUSION 08:21 → LAB 08:21 → EDSTATUS 09:22 → INFUSION 15:41
PROVIDERS: ATTEND Family Medicine
DX: D64.9 Anemia, unspecified (principal)
CPT/HCPCS: 96374; 96365; 96366; 36415; 85027; 86850; 86900; 86901; 86922; P9016; 36430; J1940; A9270-GY